=== PATIENT | female | born 1960 | race Caucasian/White ===

== ENCOUNTER 2024-03-27 20:08 | Emergency (ER) | payer OTHER ==
[~2024-03-27] VITALS: Ht 154.9 cm; Wt 84.1 kg
[2024-03-27] MEDS ORDERED: ZOLOFT25 MG PO (20:14)
[2024-03-27] MEDS ORDERED: ZESTRIL10 MG PO (20:14)
[2024-03-27] MEDS ORDERED: LIPITOR10 MG PO (20:15)
[2024-03-27] MEDS ORDERED: SODIUM CHLORIDE 0.9% 1,000 ML IV ONE (20:25)
[2024-03-27 20:42] LABS: BASO # 0.1 10*3/uL (0.0-0.1); BASO % 0.7 % (0.0-1.0); EOS # 0.1 10*3/uL (0.0-0.4); EOS % 1.2 % (1.0-4.0); HEMATOCRIT 43.9 % (37.0-47.0); MEAN CORPUSCULAR HGB 29.1 pg (27.0-31.0); MEAN CORPUSCULAR HGB CONC 32.3 g/dl (33.0-37.0); MEAN PLATELET VOLUME 11.1 fl (9.6-12.3); MONO # 0.6 10*3/uL (0.1-1.0); MONO % 6.4 % (3.0-9.0); NEUT # 6.6 10*3/uL (2.3-7.9); PLATELET COUNT AUTOMATED 210 10*3/uL (130-400); RED BLOOD COUNT 4.88 10*6/uL (4.10-5.10); RED CELL DISTRI WIDTH 12.2 % (0-14.5); WHITE BLOOD COUNT 9.5 10*3/uL (4.8-10.8)
[2024-03-27 21:07] LABS: ALKALINE PHOSPHATASE 113 U/L (46-116); BUN 10 mg/dl (9-23); CHLORIDE 104 mmol/L (98-107); POTASSIUM 3.7 mmol/L (3.4-5.1); SGPT/ALT 18 U/L (5-49); TOTAL PROTEIN 7.1 gm/dL (6.0-8.0)
[2024-03-27 21:08] LABS: ETHYL ALCOHOL < 3.0 mg/dl (<3)
[2024-03-27] MEDS ORDERED: MAGNESIUM SULFATE 50 ML IV ONE (21:55)
[2024-03-27] MEDS ORDERED: Meclizine Hydrochloride 25 MG TAB PO ONE (22:55)
[2024-03-27 23:02] LABS: BILIRUBIN Negative (Negative); BLOOD Negative (Negative); CLARITY Clear (Clear); COLOR Yellow (Yellow); GLUCOSE Negative (Negative); KETONE Negative (Negative); LEUKO ESTERASE 2+ (Negative); NITRITE Negative (Negative); UROBILINOGEN 0.2 E.U./dl (0.0-1.0)
[2024-03-27 23:09] LABS: URINE AMPHETAMINES Negative (1000ng/ml); URINE BARBITURATES Negative (200ng/ml); URINE BENZODIAZEPINES Negative (200ng/ml); URINE CANNABINOIDS (THC) Negative (50ng/ml); URINE COCAINE Negative (300ng/ml); URINE METHADONE Negative (300ng/ml); URINE OPIATES Negative (300ng/ml); URINE PHENCYCLIDINE Negative (25ng/ml)
[2024-03-27 23:20] LABS: BACTERIA 1+; MUCOUS TRACE; RBC 0-2 rbc/hpf (0-2); WBC 21-30 wbc/hpf (0-5)
[2024-03-28] MEDS ORDERED: ANTIVERT25 M2 PO (00:13)
[2024-03-28] MEDS ORDERED: CIPRO500 MG PO (00:13)
== END 2024-03-28 00:41 | disposition home or self-care (01) ==
LOC: ED 20:08
PROVIDERS: Internal Medicine
DX: H81.10 Benign paroxysmal vertigo, unspecified ear (principal); N39.0 Urinary tract infection, site not specified; R11.2 Nausea with vomiting, unspecified; F17.200 Nicotine dependence, unspecified, uncomplicated; Z88.0 Allergy status to penicillin; Z79.899 Other long term (current) drug therapy